=== PATIENT | female | born 1990 | race Asian ===

== ENCOUNTER → 2024-02-13 13:08 | Outpatient (CLI) | payer OTHER, SELFPAY ==
--- NOTE | 2024-02-13 13:13 | DI.MRI.S_ITS ---
PROCEDURE: MR HAND RT WO CON INDICATIONS: Neuralgia and neuritis TECHNIQUE: Noncontrast coronal T1 spin echo and T2 fast spin echo with fat saturation, axial proton density fast spin echo and T2 fast spin echo with fat saturation, sagittal T1 spin echo and STIR through the hand and fingers. COMPARISON: None. FINDINGS: Image quality: Excellent. Bones: Fiducial marker is placed over volar aspect of 2nd digit at the level of 2nd MCP joint. The bones are normally aligned, without marrow contusions or fractures. No intra-osseous lesions. Interphalangeal joint(s): The accessory and proper collateral ligaments appear intact. The volar plate demonstrates normal morphology. The extensor central slips appear intact on sagittal images. Metacarpophalangeal joint(s): The accessory and proper collateral ligaments appear intact, as well as the volar plate and adjacent deep transverse metacarpal ligaments. The sagittal bands of the extensor rivera appear normal. Extensor apparatus: The central slips insert normally on the middle phalangeal base. The conjoint and terminal tendons insert normally on the distal phalangeal bases. More proximal portions of the extensor tendons also appear normal. Flexor apparatus: The flexor digitorum superficialis and profundus tendons both appear thickened at the level of 2nd MCP joint deep to the site of the marker with subtle intrasubstance T2 hyperintense signal. All annular and cruciform pulleys appear intact, without adjacent soft tissue edema. Soft tissues: Visualized muscles demonstrate normal bulk and internal signal. No intramuscular masses identified. No ganglion cysts. IMPRESSION: 1. Suggestion of tendinosis and very low-grade intrasubstance partial-thickness tear involving flexor tendons of the 2nd digit at the level of 2nd MCP joint. No full-thickness tendon rupture. Extensor tendons are intact. 2. No marrow edema. No fracture or dislocation. No suspicious bony lesions. 3. No gross right hand muscle signal abnormality. Dictated by: Aldo Ramirez M.D. on 02/13/2024 at 14:55 Approved by: Aldo Ramirez M.D. on 02/13/2024 at 15:00
== END ==
PROVIDERS: Referring Provider Student in an Organized Health Care Education/Training Program; Visit Provider Student in an Organized Health Care Education/Training Program
DX: M79.2 Neuralgia and neuritis, unspecified (principal)
CPT/HCPCS: 73218

== ENCOUNTER → 2025-03-27 15:05 | Outpatient (CLI) | payer OTHER, SELFPAY ==
--- NOTE | 2025-03-27 15:05 | DI.RAD.S_ITS ---
PROCEDURE: FL BARIUM SWALLOW INDICATIONS: globus sensation/ migraines COMPARISON: None. FINDINGS: Function: There is normal esophageal peristalsis. No elicited gastroesophageal reflux. There is normal transit of a calibrated barium tablet through the esophagus into the stomach. Morphology: Air-contrast images demonstrate normal mucosal morphology. Single contrast views show no esophageal strictures, extrinsic mass effects, or diverticula. Limited images of the stomach demonstrate normal appearance. IMPRESSION: Unremarkable exam. Dictated by: Britta Álvarez M.D. on 03/27/2025 at 16:44 Approved by: Britta Álvarez M.D. on 03/27/2025 at 16:45
--- NOTE | 2025-03-27 15:06 | DI.MRI.S_ITS ---
PROCEDURE: MR HEAD/BRAIN WO CON INDICATIONS: globus sensation/ migraines TECHNIQUE: Noncontrast axial T1 spin echo, axial T2 fast spin echo, sagittal and axial FLAIR, coronal T2 fast spin echo, axial gradient echo, axial diffusion and ADC through the brain. COMPARISON: None. FINDINGS: Image quality: Excellent. CSF Spaces: Basal cisterns are patent. No extra-axial fluid collections. Ventricles are normal in size and shape. Brain: No intracranial masses or hemorrhage. Ibrahim/white matter interface is normal. Brainstem appears normal. No abnormal T2 hyperintense white matter lesions can be seen. Diffusion-weighted images demonstrate no acute infarct. No chronic ischemic insults. Normal intravascular flow voids are present. Skull and face: Calvarium has normal marrow signal. Orbits appear normal. Sinuses: Sinuses and mastoids are clear. IMPRESSION: No imaging explanation is found for this patient's presenting symptoms. To the limits of this noncontrast study, no findings of intracranial masses or mass effect can be seen. Dictated by: Papi Crandall M.D. on 03/27/2025 at 16:51 Approved by: Papi Crandall M.D. on 03/27/2025 at 16:52
== END ==
PROVIDERS: Referring Provider Preventive Medicine Aerospace Medicine; Visit Provider Preventive Medicine Aerospace Medicine
DX: G43.909 Migraine, unspecified, not intractable, without status migrainosus (principal); F45.8 Other somatoform disorders
CPT/HCPCS: 70551; 74220